=== PATIENT | male | born 1945 | race Caucasian/White ===

== ENCOUNTER → 2020-11-27 15:42 | Outpatient (CLI) | payer OTHER, SELFPAY ==
[2020-11-27 17:14] LABS: COVID19 -Nasal RAPID Negative (Negative)
== END ==
PROVIDERS: Visit Provider Physician Assistant
DX: Z01.812 Encounter for preprocedural laboratory examination (principal); Z20.822 Contact with and (suspected) exposure to COVID-19
CPT/HCPCS: 87635

== ENCOUNTER → 2020-11-28 09:34 | Outpatient (CLI) | payer OTHER, SELFPAY ==
--- NOTE | 2020-11-28 15:18 | PM.TREADMILL ---
Cardiac Stress Test Report Referral & Results Date Patient Seen: 11/28/20 Time Patient Seen: 15:18 Requesting provider: Fransico Hughes Indication: aortic valve replacement Rest ECG: sinus rhythm with 1st degree AVB Procedure Note: Standard Abdi protocol, 7:43, 8.6 METS Very good exercise capacity, HANSEL -26% Normal hemodynamic response to exercise No chest pain or anginal symptoms No significant ST changes at peak exercise No ectopy Impression: Normal exercise stress test Please note: Actual ECG tracings can be found in the PACS system.
--- NOTE | 2020-11-28 17:46 | DI.NM.S_ITS ---
DATE OF SERVICE: 11/28/2020 PROCEDURE: Exercise perfusion study. INDICATIONS: History of aortic valve and aortic root repair, hypertension, hyperlipidemia and aortic valve replacement. RADIOPHARMACEUTICAL: 25.4 millicurie technetium-99m Myoview IV was injected at stress and 10.2 millicurie technetium-99m Myoview IV was injected at rest. CARDIAC STRESS: The patient underwent exercise perfusion study under the supervision of an attending staff. He walked on Abdi protocol for 7 minutes 43 seconds, achieved 97 percent of target heart rate and normal hemodynamic response. Baseline blood pressure 122/82. Peak blood pressure 170/100 with a mild hypertensive blood pressure response. Functional aerobic impairment -26 percent. Achieved 10.1 METs of workload. Baseline EKG revealed sinus rhythm with left anterior fascicular block. During stress, no convincing ischemic changes. There was also first-degree AV block. No significant other arrhythmias seen. RAW DATA: Increased subdiaphragmatic activity. GATED STUDY: Resting LV ejection fraction of 64 and stress LV ejection fraction 80 percent. Resting end-diastolic volume 129 mL. TID ratio 0.81, which is within normal limits. Lung/heart ratio 0.30, which is within normal limits. MYOCARDIAL PERFUSION: Stress supine and resting supine images revealed small to moderate size, mild to moderately decreased perfusion of inferolateral wall, which got significantly improved during prone images, suggestive of tissue attenuation artifact. On prone images, there was some residual distal inferolateral defect seen, as well. No reversible ischemia. CONCLUSION: I will call this study likely a normal myocardial perfusion study with evidence of tissue attenuation artifact including some persistent tissue attenuation artifact without any significant reversible ischemia. Inferior and inferolateral wall is moving well. Hence, unlikely we are dealing with transmural myocardial infarction. The patient's weight is 190 pounds. There was increased subdiaphragmatic activity. Overall, left ventricular function is preserved. Overall this is a low-risk myocardial perfusion scan. Kristopher Borjas - Suresh/laura doc#: [id number]/job#: [id number] dd: 11/28/2020 16:55:00 dt: 11/28/2020 17:17:00 DICTATING MD/COPIES TO: Paxton Dsouza MD COPIES MNE: BIBIANA;
== END ==
PROVIDERS: Referring Provider Nurse Practitioner; Visit Provider Nurse Practitioner
DX: I10 Essential (primary) hypertension (principal); E78.5 Hyperlipidemia, unspecified; Z95.2 Presence of prosthetic heart valve; Z98.890 Other specified postprocedural states
CPT/HCPCS: 78452; 93017; A9502

== ENCOUNTER → 2021-11-20 11:18 | Outpatient (CLI) | payer OTHER, SELFPAY ==
[2021-11-20 12:34] LABS: BUN Creatinine Ratio 21.6 (6-22); Blood Urea Nitrogen 22 mg/dL (9-20); Calcium 9.5 mg/dL (8.4-10.2); Carbon Dioxide 30 mmol/L (22-32); Chloride 104 mmol/L (98-107); Estimated Glomerular Filt Rate > 60.0 mL/min (>60); Glucose 92 mg/dL (80-110); HEMOLYSIS < 15 (0-50); Magnesium 2.1 mg/dL (1.6-2.3); Potassium 4.6 mmol/L (3.4-5.1); Sodium 138 mmol/L (137-145)
== END ==
PROVIDERS: PCP Internal Medicine; Referring Provider Internal Medicine Cardiovascular Disease; Visit Provider Internal Medicine Cardiovascular Disease
DX: I49.3 Ventricular premature depolarization (principal); E78.5 Hyperlipidemia, unspecified; I44.0 Atrioventricular block, first degree; I44.4 Left anterior fascicular block
CPT/HCPCS: 36415; 80048; 83735

== ENCOUNTER → 2021-12-20 15:40 | Outpatient (CLI) | payer OTHER, SELFPAY ==
--- NOTE | 2021-12-20 | DI.ECHO.S_ITS ---
[facility]---------+ [facility] +---------+ : : [address] : [address] [place] : : : : [id number] : : : : Phone: [phone] Echocardiogram Report + + :Name: JENNA MORRELL Study Date: 12/20/2021 Height: 70.5 in: :[facility] ReadingLocation: Weight: 188 lb : : Gender: Male BSA: 2.0 m2 : :: 1945 Age: 76 yrs BP: 152/98 mmHg: :Reason For Study: VENTRICULAR PREMATURE DEPLOARIZATION : :Ordering Physician: ELDER, : :SUMMER Performed By: Flor Huang : :Referring: SUMMER FRIEDMAN : + + Interpretation Summary The left ventricle is normal in size. The ejection fraction is estimated to be 60-65%. There has been no significant change in LVEF since the previous exam. The right ventricle is normal in size and function. There is a bioprosthetic aortic valve. The peak aortic velocity is 2.4 m/sec. The aortic valve mean gradient is 12.5 mmHg. The peak aortic velocity on the previous exam was 2.0 m/sec. There is no hemodynamically significant valvular aortic stenosis. There is mild aortic regurgitation. The IVC is of normal diameter and collapses greater than 50% with a sniff. This suggests a low right atrial pressure of 3 mm Hg. Mild atherosclerotic plaque(s) in the aortic arch. Procedure: A two-dimensional transthoracic echocardiogram with color flow and Doppler was performed. The study quality was technically adequate. Comparison is made with the echocardiogram of 09/14/2019. The patient was in sinus rhythm with heart rates between 71-77 bpm during the exam. Left Ventricle: The left ventricle is normal in size. There is mild concentric left ventricular hypertrophy. There is no thrombus. The ejection fraction is estimated to be 60-65%. There has been no significant change since the previous exam. Septal motion is consistent with post-operative state. Diastolic parameters suggest a relaxation abnormality of the left ventricle, consistent with probable normal filling pressures. Right Ventricle: The right ventricle is normal in size and function. Atria: The left atrial size is normal. Both atria have remained unchanged in size since the prior echo exam. Right atrial size is normal. There is no Doppler evidence for an interatrial shunt. Mitral Valve: There is mild mitral annular calcification. The mitral valve leaflets are mildly calcified. The mitral valve chordae are thickened and/or calcified. There is mild mitral regurgitation. Aortic Valve: There is a bioprosthetic aortic valve. The peak aortic velocity is 2.4 m/sec. The aortic valve mean gradient is 12.5 mmHg. The peak aortic velocity on the previous exam was 2.0 m/sec. There is no hemodynamically significant valvular aortic stenosis. There is mild aortic regurgitation. Tricuspid Valve: The tricuspid valve is normal in structure and function. There is trace tricuspid regurgitation. Pulmonary artery pressures cannot be estimated because of the lack of a measurable TR jet velocity. Pulmonic Valve: The pulmonic valve is not well seen, but is grossly normal. There is no pulmonic valvular regurgitation. Great Vessels: The aortic root is mildly dilated. The dimensions of the ascending aorta are normal. Mild atherosclerotic plaque(s) in the aortic arch. The IVC is of normal diameter and collapses greater than 50% with a sniff. This suggests a low right atrial pressure of 3 mm Hg. Pericardium/ Pleura There is no pericardial effusion. There is no pleural effusion. MMode/2D Measurements & Calculations LVIDd: 4.5 cm LVOT diam: 2.1 cm LVIDs: 3.1 cm Ao root diam: 4.3 cm FS: 31.5 % asc Aorta Diam: 3.2 cm IVSd: 1.2 cm Ao Arch Diam (Prox Trans): 3.0 cm LVPWd: 1.2 cm LV jones. diameter/BSA (cm/m^2): 2.2 LV sys. diameter/BSA (cm/m^2): 1.5 LA A2 area: 19.5 cm2 RA long axis: 5.8 cm LA A4 area: 16.7 cm2 RA area: 18.4 cm2 LA length (vol): 5.7 cm RA vol: 49.5 ml LA vol: 48.4 ml RA : 24.2 ml/m2 LA vol index: 23.7 ml/m2 RVD1 (basal): 3.5 cm RVD2 (mid): 3.2 cm TAPSE: 2.1 cm Doppler Measurements & Calculations Ao V2 max: 243.4 cm/sec LVOT Max Yordan: 77.4 cm/sec Ao V2 mean: 152.1 cm/sec LV V1 max P.4 mmHg Ao max P.4 mmHg LV V1 VTI: 16.4 cm Ao mean P.5 mmHg KYLE(I,D): 1.3 cm2 Ao V2 VTI: 43.5 cm KYLE(V,D): 1.1 cm2 sev ratio: 0.38 KYLE indexed to BSA (cm^2/m^2): 0.65 MV E max yordan: 61.7 cm/sec PA V2 max: 80.3 cm/sec MV A max yordan: 69.6 cm/sec PA V2 mean: 55.4 cm/sec MV E/A: 0.89 PA mean P.3 mmHg Med Peak E' Yordan: 6.6 cm/sec PA pr(Accel): 17.3 mmHg E/E' med: 9.4 Lat Peak E' Yordan: 9.4 cm/sec E/E' lat: 6.6 E/e' average: 8.0 MV dec time: 0.26 sec SV(LVOT): 57.7 ml Reading Physician:06:19 PM
== END ==
PROVIDERS: PCP Internal Medicine; Referring Provider Internal Medicine Cardiovascular Disease; Visit Provider Internal Medicine Cardiovascular Disease
DX: I77.810 Thoracic aortic ectasia (principal); I08.0 Rheumatic disorders of both mitral and aortic valves; I70.0 Atherosclerosis of aorta; I49.3 Ventricular premature depolarization; I44.4 Left anterior fascicular block; Z95.2 Presence of prosthetic heart valve
CPT/HCPCS: 93306

== ENCOUNTER → 2024-02-16 07:56 | Outpatient (CLI) | payer MEDICARE, SELFPAY ==
--- NOTE | 2024-02-16 07:59 | DI.ECHO.S_ITS ---
[facility] +---------+ [facility] : : [address] : : [address] : : [id number] : : Phone: [phone] Echocardiogram Report + + :Name: JENNA MORRELL Study Date: 02/16/2024 Height: 70.5 in : :[facility] ReadingLocation: Weight: 190 lb : : Gender: Male BSA: 2.1 m2 : :: 1945 Age: 78 yrs BP: 154/102 mmHg: :Reason For Study: PROSTHETIC HEART VALVE : :Ordering Physician: ALICIA, : :NAPOLEON Performed By: Flor Huang : :Referring: NAPOLEON VARGAS : + + Interpretation Summary The left ventricle is normal in size. The left ventricular ejection fraction is normal. The ejection fraction is estimated to be 60-65%. No significant change in LVEF from the previous study. The right ventricle is at the upper limits of normal in size. The right ventricular systolic function is normal. There is a bioprosthetic aortic valve. The prosthetic aortic valve is well-seated. The peak aortic velocity is 2.8 m/sec. The aortic valve mean gradient is 17 mmHg. The peak aortic velocity on the previous exam was 2.4 m/sec. There is no hemodynamically significant valvular aortic stenosis. There is mild aortic regurgitation. Compared to the prior echo study, there has been no change in the severity of aortic regurgitation. There is mild tricuspid regurgitation. The IVC is of normal diameter and collapses greater than 50% with a sniff. This suggests a low right atrial pressure of 3 mm Hg. 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 4.0 cm in diameter. In August 2019, it was 3.6 cm. Mild atherosclerotic plaque(s) in the aortic arch. Procedure: A two-dimensional transthoracic echocardiogram with color flow and Doppler was performed. The study quality was technically adequate. Comparison is made with the echocardiogram of 12/20/2021. The patient was in sinus rhythm with heart rates between 65-72 bpm during the exam. Left Ventricle: The left ventricle is normal in size. Proximal septal thickening is noted. There is no thrombus. The ejection fraction is estimated to be 60-65%. The left ventricular ejection fraction is normal. There are no focal wall motion abnormalities. MV E/A: 1.3 Med Peak E' Yordan: 9.5 cm/sec E/E' med: 9.1. Right Ventricle: The right ventricle is at the upper limits of normal in size. The right ventricular systolic function is normal. Atria: The left atrial size is normal. There has been no significant change since the previous study. The right atrium is mildly dilated. There is no Doppler evidence for an interatrial shunt. Mitral Valve: The mitral valve leaflets appear mildly thickened, but open well. There is mild mitral annular calcification. There is mild mitral regurgitation. Compared to the prior echo study, there has been no change in the severity of mitral regurgitation. Aortic Valve: There is a bioprosthetic aortic valve. The prosthetic aortic valve is well-seated. The peak aortic velocity is 2.8 m/sec. The aortic valve mean gradient is 17 mmHg. The calculated aortic valve area is 1.2 cm2. The peak aortic velocity on the previous exam was 2.4 m/sec. There is no hemodynamically significant valvular aortic stenosis. There is mild aortic regurgitation. Compared to the prior echo study, there has been no change in the severity of aortic regurgitation. Tricuspid Valve: The tricuspid valve is normal. There is mild tricuspid regurgitation. Pulmonary artery pressures cannot be estimated because of the lack of a measurable TR jet velocity. Pulmonic Valve: The pulmonic valve leaflets are thin and pliable; valve motion is normal. There is no pulmonic valvular regurgitation. Great Vessels: The aortic root is normal size. 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 Mild atherosclerotic plaque(s) in the aortic arch. The IVC is of normal diameter and collapses greater than 50% with a sniff. This suggests a low right atrial pressure of 3 mm Hg. Pericardium/ Pleura There is no pericardial effusion. There is no pleural effusion. MMode/2D Measurements & Calculations LVIDd: 5.1 cm LVOT diam: 2.1 cm LVIDs: 3.7 cm asc Aorta Diam: 4.0 cm FS: 26.0 % Ao Arch Diam (Prox Trans): 3.3 cm EPSS: 1.2 cm IVSd: 0.92 cm LVPWd: 0.93 cm LV jones. diameter/BSA (cm/m^2): 2.5 LV sys. diameter/BSA (cm/m^2): 1.8 LA A2 area: 22.5 cm2 RA long axis: 6.5 cm LA A4 area: 19.8 cm2 RA area: 26.2 cm2 LA length (vol): 6.3 cm RA vol: 89.9 ml LA vol: 60.2 ml RA : 43.7 ml/m2 LA vol index: 29.3 ml/m2 IVC diam: 1.5 cm RVD1 (basal): 3.9 cm RVD2 (mid): 3.0 cm TAPSE: 2.0 cm Doppler Measurements & Calculations Ao V2 max: 274.8 cm/sec LVOT Max Yordan: 89.3 cm/sec Ao V2 mean: 191.2 cm/sec LV V1 max P.2 mmHg Ao max P.2 mmHg LV V1 VTI: 20.1 cm Ao mean P.9 mmHg KYLE(I,D): 1.3 cm2 Ao V2 VTI: 57.0 cm KYLE(V,D): 1.2 cm2 sev ratio: 0.35 KYLE indexed to BSA (cm^2/m^2): 0.62 AI P1/2t: 644.2 msec AI dec slope: 221.8 cm/sec2 MV E max yordan: 86.6 cm/sec PA V2 max: 120.8 cm/sec MV A max yordan: 66.5 cm/sec PA V2 mean: 82.9 cm/sec MV E/A: 1.3 PA mean P.0 mmHg Med Peak E' Yordan: 9.5 cm/sec PA pr(Accel): 27.6 mmHg E/E' med: 9.1 Lat Peak E' Yordan: 11.0 cm/sec E/E' lat: 7.9 E/e' average: 8.5 MV dec time: 0.23 sec SV(LVOT): 72.2 ml Reading Physician:01:03 PM
== END ==
LOC: ECHO 07:57
PROVIDERS: PCP Internal Medicine; Referring Provider Internal Medicine; Visit Provider Internal Medicine
DX: I70.0 Atherosclerosis of aorta (principal); I08.3 Combined rheumatic disorders of mitral, aortic and tricuspid valves; I77.89 Other specified disorders of arteries and arterioles; Z95.2 Presence of prosthetic heart valve
CPT/HCPCS: 93306

== ENCOUNTER → 2025-01-10 06:38 | Outpatient (CLI) | payer MEDICARE, SELFPAY ==
--- NOTE | 2025-01-10 06:40 | DI.ECHO.S_ITS ---
[facility] +---------+ [facility] : : [address] : : [place] : : [id number] : : Phone: [phone] Echocardiogram Report + + :Name: JENNA MORRELL Study Date: 01/10/2025 Height: 70 in : :[facility] ReadingLocation: Weight: 190 lb : : Gender: Male BSA: 2.0 m2 : :: 1945 Age: 79 yrs BP: 141/90 mmHg: :Reason For Study: AORTIC ENLARGEMENT : :Ordering Physician: ELDER, : :SUMMER Performed By: Nilesh Caballero : :Referring: SUMMER FRIEDMAN : + + Interpretation Summary The left ventricle is normal in size. The ejection fraction is estimated to be 55-60%. No significant change in LVEF from the previous study. The right ventricle is at the upper limits of normal in size. The right ventricular systolic function is normal. There is mild to moderate mitral regurgitation. Previously mild MR. There is a bioprosthetic aortic valve. The prosthetic aortic valve is well-seated. The peak aortic velocity is 1.97 m/sec. The aortic valve mean gradient is 8.8 mmHg. The peak aortic velocity on the previous exam was 2.8 m/sec. There is mild aortic regurgitation. Compared to the prior echo study, there has been no change in the severity of aortic regurgitation. There is mild tricuspid regurgitation. Compared to the prior echo exam, there has been no change in TR severity. The right ventricular systolic pressure is estimated to be at least 27 mmHg based on an estimated right atrial pressure of 3 mm Hg. 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 Ascending aorta diameter about 3.4 cm. Previously 4.0 cm. Procedure: A two-dimensional transthoracic echocardiogram with color flow and Doppler was performed. The study quality was technically good. Comparison is made with the echocardiogram of 02/16/2024. The patient was in normal sinus rhythm during the exam. Left Ventricle: The left ventricle is normal in size. Left ventricular wall thickness is mildly increased. Proximal septal thickening is noted. There is no echo evidence for significant left ventricular outflow tract obstruction. There is no thrombus. The ejection fraction is estimated to be 55-60%. There are no focal wall motion abnormalities. MV E/A: 1.2 Med Peak E' Yordan: 6.5 cm/sec E/E' med: 10.2. Right Ventricle: The right ventricle is at the upper limits of normal in size. The right ventricular systolic function is normal. Atria: The left atrial size is normal. There has been no significant change since the previous study. The right atrium is mildly dilated. There is no Doppler evidence for an interatrial shunt. Mitral Valve: The mitral valve leaflets appear mildly thickened, but open well. There is mild mitral annular calcification. The mitral valve chordae are thickened and/or calcified. There is mild to moderate mitral regurgitation. Aortic Valve: There is a bioprosthetic aortic valve. The prosthetic aortic valve is well-seated. The peak aortic velocity is 1.97 m/sec. The aortic valve mean gradient is 8.8 mmHg. The peak aortic velocity on the previous exam was 2.8 m/sec. There is mild aortic regurgitation. Compared to the prior echo study, there has been no change in the severity of aortic regurgitation. Tricuspid Valve: The tricuspid valve is normal. There is mild tricuspid regurgitation. The right ventricular systolic pressure is estimated to be at least 27 mmHg based on an estimated right atrial pressure of 3 mm Hg. Compared to the prior echo exam, there has been no change in TR severity. Pulmonic Valve: The pulmonic valve leaflets are thin and pliable; valve motion is normal. There is trace pulmonic regurgitation. Great Vessels: The aortic root is mildly dilated. The dimensions of the ascending aorta are normal. The pulmonary artery is normal size. The IVC is of normal diameter and collapses greater than 50% with a sniff. This suggests a low right atrial pressure of 3 mm Hg. Pericardium/ Pleura There is no pericardial effusion. There is no pleural effusion. MMode/2D Measurements & Calculations LVIDd: 4.9 cm LVOT diam: 2.1 cm LVIDs: 3.2 cm Ao root diam: 4.3 cm FS: 34.0 % asc Aorta Diam: 3.4 cm EPSS: 0.58 cm Ao Arch Diam (Prox Trans): 1.5 cm IVSd: 1.2 cm LVPWd: 1.2 cm LV jones. diameter/BSA (cm/m^2): 2.4 LV sys. diameter/BSA (cm/m^2): 1.6 LA A2 area: 14.3 cm2 RA long axis: 6.3 cm LA A4 area: 21.2 cm2 RA area: 18.9 cm2 LA length (vol): 6.0 cm RA vol: 48.4 ml LA vol: 43.0 ml RA : 23.7 ml/m2 LA vol index: 21.1 ml/m2 IVC diam: 1.7 cm RVD1 (basal): 4.1 cm RVD2 (mid): 3.8 cm TAPSE: 2.1 cm Doppler Measurements & Calculations Ao V2 max: 197.0 cm/sec LVOT Max Yordan: 54.0 cm/sec Ao V2 mean: 142.2 cm/sec LV V1 max P.2 mmHg Ao max P.5 mmHg LV V1 VTI: 13.3 cm Ao mean P.8 mmHg KYLE(I,D): 0.95 cm2 Ao V2 VTI: 48.7 cm KYLE(V,D): 0.95 cm2 sev ratio: 0.27 KYLE indexed to BSA (cm^2/m^2): 0.47 AI P1/2t: 494.4 msec AI dec slope: 264.9 cm/sec2 MV E max yordan: 66.1 cm/sec TR max yordan: 242.9 cm/sec MV A max yordan: 56.9 cm/sec TR max P.6 mmHg MV E/A: 1.2 PA V2 max: 71.7 cm/sec Med Peak E' Yordan: 6.5 cm/sec PA V2 mean: 54.8 cm/sec E/E' med: 10.2 PA mean P.3 mmHg Lat Peak E' Yordan: 8.4 cm/sec PA pr(Accel): 37.9 mmHg E/E' lat: 7.9 E/e' average: 9.1 MV dec time: 0.21 sec SV(LVOT): 46.3 ml Reading Physician:03:33 PM
== END ==
PROVIDERS: PCP Internal Medicine; Referring Provider Internal Medicine Cardiovascular Disease; Visit Provider Internal Medicine Cardiovascular Disease
DX: I08.3 Combined rheumatic disorders of mitral, aortic and tricuspid valves (principal); I77.89 Other specified disorders of arteries and arterioles; Z95.3 Presence of xenogenic heart valve
CPT/HCPCS: 93306